=== PATIENT | female | born 1940 | race Caucasian/White ===

== ENCOUNTER 2016-10-24 01:34 | Emergency (ER) | payer OTHER ==
[~2016-10-24] VITALS: Ht 152.4 cm; Wt 70.0 kg
[2016-10-24 01:35] VITALS: RESP 18; O2SAT 98
[2016-10-24 01:41] VITALS: BP 164/71; PULSE 75; RESP 18; TEMP 98.1; O2SAT 96
[2016-10-24] MEDS ORDERED: LOSA25TA PO (01:59)
[2016-10-24] MEDS ORDERED: NAPR220T95 PO (02:00)
[2016-10-24] MEDS ORDERED: METO25TA3 PO (02:00)
[2016-10-24] MEDS ORDERED: AMLO5 PO (02:00)
[2016-10-24] MEDS ORDERED: CHOL20005 PO (02:00)
[2016-10-24] MEDS ORDERED: PRIM50TA5 PO (02:00)
[2016-10-24] MEDS ORDERED: OMEP20TA PO (02:00)
[2016-10-24] MEDS ORDERED: SIMV20TA PO (02:00)
[2016-10-24] MEDS ORDERED: MULT1TAB41 (02:00)
[2016-10-24] MEDS ORDERED: SODIUM CHLORID 0.9% 500 ML INJ 500 ML IV ONE (02:30)
--- NOTE | 2016-10-24 02:34 | RADRPT ---
EXAM DATE/TIME: 10/24/2016 02:24 [facility] COMPARISON: No previous studies available for comparison. INDICATIONS : Chest pain. MEDICAL HISTORY : Chronic obstructive pulmonary disease. SURGICAL HISTORY : None. ENCOUNTER: Initial ACUITY: 1 day PAIN SCORE: 8/10 LOCATION: Left upper chest FINDINGS: Cardiomegaly. Clear lungs. High riding humeral head on the right. CONCLUSION: No acute disease. Kevin Sofia MD on October 24, 2016 at 2:32 Board Certified Radiologist. This report was verified electronically.
[2016-10-24 02:39] LABS: ALKALINE PHOSPHATASE 92 U/L (45-117); ALT (GPT) 44 U/L (10-53); ANION GAP 8 MEQ/L (5-15); APTT (PATIENT) 24.2 SEC (24.3-30.1); AST (GOT) 69 U/L (15-37); BICARBONATE 26.9 MEQ/L (21.0-32.0); BLOOD UREA NITROGEN 18 MG/DL (7-18); CHLORIDE 103 MEQ/L (98-107); CREATINE KINASE 82 U/L (26-192); GLOMERULAR FILTRATION RATE 56 ML/MIN (>89); INTERNATIONAL NORMALIZED RATIO 0.9 RATIO; MAGNESIUM 1.7 MG/DL (1.5-2.5); SODIUM (NA) 138 MEQ/L (136-145); TOTAL BILIRUBIN ADULT 0.3 MG/DL (0.2-1.0)
--- NOTE | 2016-10-24 02:45 | PD ---
HPI Chief Complaint: Abdominal Pain Time Seen by Provider: 01:43 Travel History International Travel<30 days: No Contact w/Intl Traveler<30days: No Traveled to known affect area: No History of Present Illness HPI The patient is a 76 year old female who presents to the [facility] emergency department with a history of sudden onset of midepigastric abdominal pain that awoke her from sound sleep approximately 1 hour prior to arrival. She reports that the pain radiates into her back and up into the chest. The patient denies ever having a pain like this previously. The patient denies ever having a pain like this previously. She reports that she had nausea associated with this, however no vomiting. The patient was brought in by ambulance services. The patient was given Zofran prior to arrival and reports that the symptoms have resolved. She denies any history of coronary artery disease. She reports that she last had a stress test done a year and a half ago which was reportedly unremarkable. She does however have a history of hyperlipidemia and hypertension. 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 The patient reports that she also takes Aleve daily related to neck pain. The patient reports a past medical history significant for a peptic ulcer 10 years ago. The patient denies any recent fevers, cough, congestion, neck pain, shortness of breath, diarrhea, urinary symptoms, or neurologic symptoms. [facility] Past Medical History Narrative Medical The patient's past medical history significant for acid reflux, chronic neck pain related to arthritis, history of hypertension, history of hyperlipidemia, history of peptic ulcer disease 10 years ago Cardiovascular Problems: Yes (htn) High Cholesterol: Yes Hypertension: Yes Tetanus Vaccination: Unknown Influenza Vaccination: Yes ?: Not Past Surgical History Narrative Surgical The patient's past surgical history is significant for a hysterectomy, appendectomy, 2. Appendectomy: Yes Section: Yes Hysterectomy: Yes Social History Alcohol Use: Yes (OCCASIONALLY, one drink this evening) Tobacco Use: No Substance Use: No Allergies-Medications (Allergen,Severity, Reaction): Coded Allergies: Sulfa (Verified Allergy, Unknown, 10/24/16) Reported Meds & Prescriptions Reported Meds & Active Scripts Active Reported Primidone 50 Mg Tab 50 Mg PO QID Sent (Multiple Vitamins W/ Minerals) 1 Tab Tab D3 Super Strength (Cholecalciferol) 2,000 Unit Cap 2,000 Units PO DAILY Aleve (Naproxen Sodium) 220 Mg Tab 220 Mg PO BID PRN Omeprazole 20 Mg Tab 20 Mg PO DAILY Simvastatin 20 Mg Tab 20 Mg PO DAILY Norvasc (Amlodipine Besylate) 5 Mg Tab 5 Mg PO DAILY Metoprolol Tartrate 25 Mg Tab 25 Mg PO BID Losartan (Losartan Potassium) 25 Mg Tab 12.5 Mg PO DAILY Review of Systems Except as stated in HPI: all other systems reviewed are Neg General / Constitutional: No: Fever Eyes: No: Visual changes HENT: No: Headaches Cardiovascular: Positive: Chest Pain or Discomfort Respiratory: No: Shortness of Breath Gastrointestinal: Positive: Nausea, Abdominal Pain, Indigestion, No: Vomiting , Diarrhea, Constipation, Changes in Bowel Habits, Loss of Appetite Genitourinary: No: Dysuria Musculoskeletal: No: Pain Skin: No Rash Neurologic: No: Weakness Psychiatric: No: Depression Endocrine: No: Polydipsia Hematologic/Lymphatic: No: Easy Bruising Physical Exam Narrative General: The patient is a well-developed well-nourished female in no acute distress. Head and Neck exam: Head is normocephalic atraumatic. Eyes: Pupils are equal round and reactive to light. Nose: Midline septum with pink mucous membranes Mouth: Dentition unremarkable. Moist mucus membranes. Posterior oropharynx is not erythematous. No tonsillar hypertrophy. Uvula midline. Airway patent. Neck: No palpable lymphadenopathy. No nuchal rigidity. No thyromegaly. Cardiovascular: Regular rate and rhythm without murmurs, gallops, or rubs. Lungs: Clear to auscultation bilaterally. No wheezes, rhonchi, or rales. Abdomen: Soft, without tenderness to palpation in all 4 quadrants of the abdomen. No guarding, rebound, or rigidity. Normal bowel sounds are audible. No tenderness on palpation of McBurney's point. Negative Bowles's sign. Extremities: No clubbing, cyanosis, or edema. 2+ pulses in all 4 extremities. No calf tenderness on palpation. Back: No spinous process tenderness to palpation. No costovertebral angle tenderness to palpation. Neurologic Exam: Grossly nonfocal. Skin Exam: No rash noted. Intact skin that is warm and dry. Data Data Last Documented VS Vital Signs Date Time Temp Pulse Resp B/P Pulse Ox O2 Delivery O2 Flow Rate FiO2 10/24/16 01:41 98.1 75 18 164/71 96 10/24/16 01:35 Room Air Orders Electrocardiogram (10/24/16 02:01) Complete Blood Count With Diff (10/24/16 02:01) Comprehensive Metabolic Panel (10/24/16 02:01) Creatine Kinase (Cpk) (10/24/16 02:01) Ckmb (Isoenzyme) Profile (10/24/16 02:01) Troponin I (10/24/16 02:01) Prothrombin Time / Inr (Pt) (10/24/16 02:01) Act Partial Throm Time (Ptt) (10/24/16 02:01) Lipase (10/24/16 02:01) Urinalysis - C+S If Indicated (10/24/16 02:01) Magnesium (Mg) (10/24/16 02:01) Chest, Single Ap (10/24/16 02:01) Ct Abd/Pel W Iv Contrast(Rout) (10/24/16 02:01) Iv Access Insert/Monitor (10/24/16 02:01) Ecg Monitoring (10/24/16 02:01) Oximetry (10/24/16 02:01) Sodium Chlorid 0.9% 500 Ml Inj (Ns 500 M (10/24/16 02:30) Urine Culture (10/24/16 02:30) Pantoprazole Inj (Protonix Inj) (10/24/16 03:00) Iohexol 350 Inj (Omnipaque 350 Inj) (10/24/16 02:58) Ceftriaxone Inj (Rocephin Inj) (10/24/16 03:30) Labs Laboratory Tests Test 10/24/16 10/24/16 02:00 02:30 White Blood Count 4.6 TH/MM3 Red Blood Count 4.04 MIL/MM3 Hemoglobin 11.8 GM/DL Hematocrit 35.6 % Mean Corpuscular Volume 88.1 FL Mean Corpuscular Hemoglobin 29.3 PG Mean Corpuscular Hemoglobin 33.3 % Concent Red Cell Distribution Width 13.4 % Platelet Count 122 TH/MM3 Mean Platelet Volume 11.3 FL Neutrophils (%) (Auto) 47.1 % Lymphocytes (%) (Auto) 42.0 % Monocytes (%) (Auto) 8.3 % Eosinophils (%) (Auto) 2.2 % Basophils (%) (Auto) 0.4 % Neutrophils # (Auto) 2.2 TH/MM3 Lymphocytes # (Auto) 1.9 TH/MM3 Monocytes # (Auto) 0.4 TH/MM3 Eosinophils # (Auto) 0.1 TH/MM3 Basophils # (Auto) 0.0 TH/MM3 CBC Comment DIFF FINAL Differential Comment Prothrombin Time 10.0 SEC Prothromb Time International 0.9 RATIO Ratio Activated Partial 24.2 SEC Thromboplast Time Sodium Level 138 MEQ/L Potassium Level 4.0 MEQ/L Chloride Level 103 MEQ/L Carbon Dioxide Level 26.9 MEQ/L Anion Gap 8 MEQ/L Blood Urea Nitrogen 18 MG/DL Creatinine 0.96 MG/DL Estimat Glomerular Filtration 56 ML/MIN Rate Random Glucose 124 MG/DL Calcium Level 8.6 MG/DL Magnesium Level 1.7 MG/DL Total Bilirubin 0.3 MG/DL Aspartate Amino Transf 69 U/L (AST/SGOT) Alanine Aminotransferase 44 U/L (ALT/SGPT) Alkaline Phosphatase 92 U/L Total Creatine Kinase 82 U/L Troponin I LESS THAN 0.02 NG/ML Total Protein 6.7 GM/DL Albumin 3.6 GM/DL Lipase 105 U/L Urine Color YELLOW Urine Turbidity CLEAR Urine pH 7.0 Urine Specific [place] 1.013 Urine Protein NEG mg/dL Urine Glucose (UA) NEG mg/dL Urine Ketones NEG mg/dL Urine Occult Blood TRACE Urine Nitrite NEG Urine Bilirubin NEG Urine Urobilinogen LESS THAN 2.0 MG/DL Urine Leukocyte Esterase MOD Urine RBC 6 /hpf Urine WBC 16 /hpf Urine Squamous Epithelial 2 /hpf Cells Urine Transitional Epithelial <1 /hpf Cells Urine Bacteria MANY /hpf Urine Mucus FEW /lpf Microscopic Urinalysis Comment CULTURE INDICATED MDM Medical Decision Making Medical Screen Exam Complete: Yes Emergency Medical Condition: Yes Medical Record Reviewed: Yes Differential Diagnosis Acute pancreatitis, versus biliary colic, versus acute coronary syndrome, versus peptic ulcer disease, versus acid reflux, versus gastritis Narrative Course During the course of the patients emergency department visit, the patients history, examination, and differential diagnosis were reviewed with the patient. The patient had IV access obtained and blood work sent for analysis. The patient was placed on a cardiac care unit nurse with oximetry and blood pressure monitoring. An EKG was done on arrival. The patient's EKG shows a sinus rhythm heart rate of 77, no acute ST segment elevation is noted, no acute ST segment depression is noted. T waves are inverted in V1. The patient was provided normal saline a 500 mL bolus 1, Protonix 40 mg IV. The patient's abdominal pain and nausea has completely resolved prior to arrival. The patients laboratory studies were reviewed and remarkable for a CBC that shows a white count of 4.6, hemoglobin 11.8, platelets 122 with 8.3 monocytes. CMP is remarkable for a glucose of 124, AST 69, CPK 82, troponin I less than 0.02, lipase 105, PT 10, PTT 24.2, urinalysis shows trace occult blood, moderate leukocyte esterase, 6 RBCs, 16 WBCs, many bacteria, 2 squamous epithelial cells, culture indicated. The patient will be treated for urinary tract infection with Rocephin 1 g IV. Radiology studies were reviewed and remarkable for a chest x-ray that shows no acute abnormality. CT scan of the abdomen and pelvis shows atherosclerosis of the aorta and iliac vessels, cholelithiasis is noted, 3.5 cm wide no diverticulum. During the course of the patient's emergency department observation, the patient had no recurrence of pain. The patient reports that her nausea has resolved. We did discuss the fact that this could be related to biliary colic. The patient was instructed to avoid fatty foods. She is instructed to follow-up with her primary care physician for reexamination. The patient is resting comfortably and feels better, is alert and in no distress. The patients results and examination findings were discussed with the patient. The repeat examination is unremarkable and benign. The history, exam, diagnostic testing, and current condition do not suggest any significant pathology to warrant further testing, continued ED treatment, admission, or surgical evaluation at this point. The vital signs have been stable. The patient does not have uncontrollable pain, intractable vomiting, or other significant symptoms. The patient's condition is stable and appropriate for discharge. The patient will pursue further outpatient evaluation with a primary care physician or other designated or consulting physician as indicated in the discharge instructions. The patient expressed understanding and was agreeable with this plan. Diagnosis Primary Impression: Abdominal pain Qualified Code: R10.13 - Epigastric pain Additional Impression: Cholelithiasis Qualified Code: K80.20 - Calculus of gallbladder without cholecystitis without obstruction Referrals: Primary Care Physician 2 days Patient Instructions: Abdominal Pain (ED), Biliary Colic (ED), General Instructions Additional Instructions: Avoid fatty foods Med/Other Pt SpecificInfo: Prescription(s) given Scripts Ondansetron Odt (Zofran Odt)4 Mg Tab4 Mg SL Q6HR PRN (Nausea/Vomiting) #7 TAB Ref 0 Prov:Chantel Price MD 10/24/16 Disposition: 01 DISCHARGE HOME Condition: Stable Chantel Price MD Oct 24, 2016 02:45
[2016-10-24 02:46] LABS: AUTOMATED NEUTROPHIL # 2.2 TH/MM3 (1.8-7.7); BASOPHIL % 0.4 % (0.0-2.0); EOSINOPHIL # 0.1 TH/MM3 (0-0.4); EOSINOPHIL % 2.2 % (0.0-4.0); HEMATOCRIT 35.6 % (35.0-46.0); HEMO FLAGS DIFF FINAL; LYMPHOCYTE # 1.9 TH/MM3 (1.0-4.8); MEAN CELL VOLUME 88.1 FL (80.0-100.0); MEAN CORPUSCULAR HEMOGLOBIN 29.3 PG (27.0-34.0); MEAN CORPUSCULAR HGB CONC 33.3 % (32.0-36.0); MONO % 8.3 % (0.0-8.0); NEUT % 47.1 % (16.0-70.0); PLATELET COUNT 122 TH/MM3 (150-450); RED BLOOD COUNT 4.04 MIL/MM3 (4.00-5.30); RED CELL DISTRIBUTION WIDTH 13.4 % (11.6-17.2); WHITE BLOOD COUNT 4.6 TH/MM3 (4.0-11.0)
[2016-10-24 02:50] LABS: BACTERIA, URINE MANY /hpf; BLOOD, URINE TRACE (NEG); COMMENT (UR) CULTURE INDICATED; CULTURE IF INDICATED CULTURE INDICATED; GLUCOSE,URINE NEG (NEG); KETONE, URINE NEG (NEG); MUCUS URINE FEW /lpf (OCC); NITRITE,URINE NEG (NEG); SQUAMOUS EPITHELIAL CELL URINE 2 /hpf (0-5); TRANSITIONAL EPI CELLS, URINE <1 /hpf; URINE COLOR YELLOW (YELLW/STRAW)
[2016-10-24] MEDS ORDERED: IOHEXOL 350 MG/ML 10 ML VIAL (for RAD DIAG) IV ONE (02:58)
[2016-10-24] MEDS ORDERED: PANTOPRAZOLE SODIUM 40 MG VIAL IV PUSH ONE (03:00)
[2016-10-24] MEDS ORDERED: cefTRIAXone INJ 1,000 MG in SODIUM CHLORIDE 0.9% INJ 100 ML IV ONE (03:30)
--- NOTE | 2016-10-24 03:50 | RADRPT ---
EXAM DATE/TIME: 10/24/2016 02:57 [facility] COMPARISON: No previous studies available for comparison. INDICATIONS : Epigastric pain. IV CONTRAST: 95 cc Omnipaque 350 (iohexol) IV ORAL CONTRAST: No oral contrast ingested. RADIATION DOSE: 13.07 CTDIvol (mGy) MEDICAL HISTORY : Hypertension. Cardiovascular disease SURGICAL HISTORY : Appendectomy. Hysterectomy. section. ENCOUNTER: Initial ACUITY: 1 day PAIN SCALE: 1/10 LOCATION: medial abdomen TECHNIQUE: Volumetric scanning of the abdomen and pelvis was performed. Using automated exposure control and ad justment of the mA and/or kV according to patient size, radiation dose was kept as low as reasonably achievable to obtain optimal diagnostic quality images. FINDINGS: The liver, spleen, pancreas, adrenal glands, bilateral kidneys are unremarkable. Cholelithiasis is no arya. 3.5 cm duodenal diverticulum. Atherosclerotic calcification of the aorta and iliac vessels are s een. Urinary bladder unremarkable. Small and large bowel are unremarkable. CONCLUSION: 1. Atherosclerosis. 2. Cholelithiasis. Kevin Sofia MD on October 24, 2016 at 3:46 Board Certified Radiologist. This report was verified electronically.
[2016-10-24] MEDS ORDERED: ZOFR4TAB3 SL (04:32)
--- NOTE | 2016-10-24 11:40 | EKG ---
Date Performed: 10/24/2016 Time Performed: 01:47:52 PTAGE: 76 years EKG: Sinus rhythm POSSIBLE LEFT ATRIAL ENLARGEMENT BORDERLINE ECG NO PREVIOUS TRACING DOCTOR: Speedy Shaver Interpretating Date/Time 10/24/2016 11:38:12
== END 2016-10-24 05:03 | disposition home or self-care (01) ==
LOC: NEPE 01:34
DX: K80.20 Calculus of gallbladder without cholecystitis without obstruction (principal); N39.0 Urinary tract infection, site not specified; G89.29 Other chronic pain; K21.9 Gastro-esophageal reflux disease without esophagitis; I70.0 Atherosclerosis of aorta; I10 Essential (primary) hypertension; B96.20 Unspecified Escherichia coli [E. coli] as the cause of diseases classified elsewhere
CPT/HCPCS: 71010; 74177; 80053; 81001; 82550; 83690; 83735; 84484; 85025; 85610; 85730; 87077; 87086; 87186; 93005; 96361; 96365; 96375; 99285; C9113; J0696; J7040; Q9967